=== PATIENT | male | born 1950 | race Caucasian/White ===

== ENCOUNTER → 2018-07-21 | Outpatient (CLI) | payer MEDICARE ==
[2018-07-21 16:29] LABS: ADD MAN DIFF? NO
[2018-07-21 16:31] LABS: WHITE BLOOD COUNT 6.5 10^3/ul (4.8-10.8)
[2018-07-21 16:31] LABS: BASOPHIL # 0.1 10^3/ul (0.0-0.1); BASOPHILS % 1.2 % (0.0-2.0); EOSINOPHILS # 0.1 10^3/ul (0.0-0.5); EOSINOPHILS % 1.4 % (0.0-7.0); HEMATOCRIT 44.9 % (42.0-52.0); HEMOGLOBIN 15.3 g/dl (14.0-18.0); LYMPHOCYTES # 2.7 10^3/ul (0.8-2.9); LYMPHOCYTES % 41.3 % (15.0-51.0); MEAN CORPUSCULAR HEMOGLOBIN 28.8 pg (29.0-33.0); MEAN CORPUSCULAR HGB CONC 34.1 g/dl (32.0-37.0); MEAN CORPUSCULAR VOLUME 84.6 fl (82.0-101.0); MEAN PLATELET VOLUME 9.6 fl (7.4-10.4); MONOCYTE # 0.4 10^3/ul (0.3-0.9); MONOCYTES % 5.6 % (0.0-11.0); NEUTROPHIL # 3.3 10^3/ul (1.6-7.5); NEUTROPHILS % 50.2 % (39.0-77.0); PLATELET COUNT 281 10^3/UL (140-415); RED BLOOD COUNT 5.31 10^6/ul (4.70-6.10); RED CELL DISTRIBUTION WIDTH 12.6 % (11.5-14.5)
[2018-07-21 16:33] LABS: ADD UMIC NO; UR ASCORBIC ACID NEGATIVE (NEGATIVE); UR BILIRUBIN (Dip) NEGATIVE (NEGATIVE); UR BLOOD (Dip) NEGATIVE (NEGATIVE); UR CLARITY CLEAR (CLEAR); UR COLOR STRAW (YELLOW); UR GLUCOSE (Dip) NEGATIVE (NEGATIVE); UR KETONES (Dip) NEGATIVE (NEGATIVE); UR LEUKOCYTE ESTERASE (Dip) NEGATIVE Leu/ul (NEGATIVE); UR NITRITE (Dip) NEGATIVE (NEGATIVE); UR SPECIFIC GRAVITY (Dip) 1.006 (1.003-1.030); UR TOTAL PROTEIN (Dip) NEGATIVE (NEGATIVE); UR UROBILINOGEN (Dip) NEGATIVE (NEGATIVE)
[2018-07-21 16:44] LABS: INR 0.91; PROTIME 12.3 Sec (11.9-14.9)
[2018-07-21 16:45] LABS: PARTIAL THROMBOPLASTIN TIME 29.2 Sec (23.0-35.0)
[2018-07-21 16:48] LABS: ALANINE AMINOTRANSFERASE 52 IU/L (13-69); ALBUMIN 4.8 g/dl (3.3-4.9); ALBUMIN/GLOBULIN RATIO 1.17; ALKALINE PHOSPHATASE 139 IU/L (42-121); ANION GAP 12 (5-13); ASPARTATE AMINO TRANSFERASE 46 IU/L (15-46); BILIRUBIN,INDIRECT 0.5 mg/dl (0-1.1); BILIRUBIN,TOTAL 0.5 mg/dl (0.2-1.3); BLOOD UREA NITROGEN 12 mg/dl (7-20); CALCIUM 10.1 mg/dl (8.4-10.2); CARBON DIOXIDE 31 mmol/L (21-31); CHLORIDE 102 mmol/L (97-110); CREATININE 0.97 mg/dl (0.61-1.24); Estimated GFR > 60 mL/min (>60); GLUCOSE 93 mg/dl (70-220); POTASSIUM 4.3 mmol/L (3.5-5.1); SODIUM 145 mmol/L (135-144); TOTAL PROTEIN 8.9 g/dl (6.1-8.1)
== END | disposition home or self-care (01) ==
LOC: LAB 15:53
DX: Z01.818 Encounter for other preprocedural examination (principal); I10 Essential (primary) hypertension; E11.8 Type 2 diabetes mellitus with unspecified complications
CPT/HCPCS: 71045; 80053; 81003; 85025; 85610; 85730; 93005

== ENCOUNTER 2018-07-28 05:58 | Day surgery (SDC) | payer MEDICARE ==
[2018-07-28] MEDS: CEFAZOLIN 1 GM INJ (06:44)
[2018-07-28] MEDS ORDERED: NA HYALURONATE/CHONDROITIN 0.5 ML SYG (06:45)
[2018-07-28] MEDS: CARBACHOL 0.01% 1.5 ML OPH INJ (06:45)
[2018-07-28] MEDS ORDERED: EPINEPHrine 1 MG INJ (06:45)
[2018-07-28] MEDS ORDERED: TETRACAINE 0.5% 4 ML OPH (06:45)
[2018-07-28] MEDS: DEXAMETHASONE 4 MG/ML 1 ML INJ (06:45)
[2018-07-28] MEDS ORDERED: GENTAMICIN 80 MG INJ (06:45)
[2018-07-28] MEDS ORDERED: MOXIFLOXACIN 0.5% 3 ML OPH (06:45)
[2018-07-28] MEDS: CYCLOPENTOLATE/PHENYLEPH 2 ML OPH OPER (07:00)
[2018-07-28] MEDS: DICLOFENAC 0.1% 2.5 ML OPH OPER (07:00)
[2018-07-28] MEDS: MOXIFLOXACIN 0.5% 3 ML OPH OPER (07:00)
[2018-07-28] MEDS: TROPICAMIDE 1% 3 ML OPH OPER (07:00)
[2018-07-28] MEDS ORDERED: PROPOFOL 20 ML (07:06)
[2018-07-28] MEDS ORDERED: LIDOCAINE 100 MG SYRINGE (07:07)
[2018-07-28] MEDS ORDERED: LIDOCAINE 4% (MPF) 5 ML INJ (07:12)
[2018-07-28] MEDS: SOD CHLORIDE 0.9% 1,000 ML IV (07:25)
[2018-07-28] MEDS ORDERED: HYDROmorphONE 1 MG/5 ML IV SYRINGE IV ×3 (08:28→08:30)
[2018-07-28] MEDS ORDERED: hydrALAzine 20 MG INJ (08:28)
[2018-07-28] MEDS ORDERED: EPHEDrine SULFATE 50 MG/5 ML SYG IV (08:30)
[2018-07-28] MEDS ORDERED: ONDANSETRON 4 MG INJ IV (08:30)
[2018-07-28] MEDS ORDERED: morphine (1 MG/ML) 10ML SYRINGE IV ×3 (08:30)
[2018-07-28] MEDS ORDERED: LABETALOL HCL 20MG INJ IV (08:30)
[2018-07-28] MEDS ORDERED: FENTAnyl 50 MCG/ML VIAL IV ×2 (08:30)
[2018-07-28] MEDS ORDERED: OXYCODONE/ACETAMINOPHEN (5/325) TAB PO ×2 (08:30)
[2018-07-28] MEDS ORDERED: METOCLOPRAMIDE 10 MG INJ IV (08:30)
[2018-07-28] MEDS: HYDROmorphONE 1 MG/5 ML IV SYRINGE IV (08:37)
[2018-07-28] MEDS: hydrALAzine 20 MG INJ IV (08:40)
== END 2018-07-28 09:55 | disposition home or self-care (01) ==
LOC: SDS 05:58
DX: H25.12 Age-related nuclear cataract, left eye (principal); E11.9 Type 2 diabetes mellitus without complications
CPT/HCPCS: 66984; 82962